=== PATIENT | male | born 1990 | race Two or more races ===

== ENCOUNTER 2018-02-13 11:16 | Emergency (ER) | payer MEDICAID ==
[~2018-02-13] VITALS: Ht 172.7 cm; Wt 60.2 kg
[2018-02-13 11:20] VITALS: BP 120/79
[2018-02-13] MEDS ORDERED: QUET100T4 PO (11:42)
[2018-02-13] MEDS ORDERED: ESTR1POW13 PO (11:42)
[2018-02-13] MEDS ORDERED: SPIR25TA3 PO (11:42)
== END 2018-02-13 12:01 | disposition home or self-care (01) ==
LOC: ED 11:49
DX: L03.115 Cellulitis of right lower limb (principal); M79.604 Pain in right leg; F17.200 Nicotine dependence, unspecified, uncomplicated
CPT/HCPCS: 99283

== ENCOUNTER 2019-12-02 08:54 | Emergency (ER) | payer SELFPAY ==
[~2019-12-02] VITALS: Ht 172.7 cm; Wt 65.1 kg
[~2019-12-02 08:54] MED LIST: ESTR1POW13 PO; QUET100T4 PO; SPIR25TA5 PO
[2019-12-02 08:57] VITALS: BP 124/76
== END 2019-12-02 09:49 | disposition home or self-care (01) ==
LOC: ED 09:37
DX: F41.1 Generalized anxiety disorder (principal); Z76.0 Encounter for issue of repeat prescription
CPT/HCPCS: 99283